=== PATIENT | female | born 1990 | race African-American/Black ===

== ENCOUNTER 2019-05-08 23:45 | Emergency (ER) | payer SELFPAY ==
[~2019-05-08] VITALS: Ht 160 cm; Wt 65.4 kg
[2019-05-08 23:49] VITALS: BP 128/70
== END 2019-05-09 00:54 | disposition home or self-care (01) ==
LOC: ER 23:51
DX: J03.90 Acute tonsillitis, unspecified (principal)

== ENCOUNTER 2021-07-02 09:50 | Emergency (ER) | payer MEDICAID, OTHER ==
[~2021-07-02] VITALS: Ht 160 cm; Wt 63.5 kg
[2021-07-02 09:52] VITALS: BP 107/52
[2021-07-02 11:22] LABS: Urine Bacteria NONE SEEN /hpf (None Seen); Urine Blood 1+ /uL (Negative); Urine Specific Gravity 1.013 (1.001-1.035); Urine WBC 1472 /hpf (0 - 5); Urine WBC Clumps PRESENT /hpf (None Seen)
[2021-07-02] MEDS ORDERED: SODIUM CHLORIDE 0.9% 1,000 ML IV ONE ×2 (11:45)
[2021-07-02] MEDS ORDERED: cefTRIAXone 1GM/50ML D5W 50 ML IV ONE (13:30)
[2021-07-02 15:02] LABS: Alcohol, Urine < 3.0 mg/dL (0-10); Amphetamine Screen, Urine NEGATIVE (NEGATIVE); Barbiturate Scree,Urine NEGATIVE (NEGATIVE); Benzodiazephine Screen, Urine NEGATIVE (NEGATIVE); Cannabinoid Screen, Urine POSITIVE (NEGATIVE); Cocaine Screen, Urine NEGATIVE (NEGATIVE); Opiate Scree,Urine NEGATIVE (NEGATIVE); Phencyclidine Screen, Urine NEGATIVE (NEGATIVE)
== END 2021-07-02 15:12 | disposition left against medical advice (07) ==
LOC: ER 09:50
DX: N39.0 Urinary tract infection, site not specified (principal); E86.0 Dehydration; I10 Essential (primary) hypertension; F17.210 Nicotine dependence, cigarettes, uncomplicated; Z88.0 Allergy status to penicillin
CPT/HCPCS: 74176; 80307; 81001; 81025